=== PATIENT | female | born 1980 | race Asian ===

== ENCOUNTER → 2018-05-19 | Outpatient (REF) | payer OTHER | LOC: M SFHCLERA 11:11 | DX: J02.9 Acute pharyngitis, unspecified (principal) ==

== ENCOUNTER → 2018-05-19 | Outpatient (CLI) | payer OTHER | LOC: M LRY 11:12 | DX: R05 Cough (principal) | CPT/HCPCS: 87880 ==

== ENCOUNTER → 2018-12-11 | Outpatient (CLI) | payer OTHER ==
[~2018-12-11] MED LIST: GASTROGRAFIN SOLUTION 30ML (Q9963) As Ordered ONE; ISOVUE-370 76% 100ML VIAL (Q9967) As Ordered ONE
--- NOTE | 2018-12-11 16:32 | REP ---
CT abdomen and pelvis with IV and oral contrast: History: Left lower quadrant abdomen pain. Nausea. Please evaluate for renal stones, pancreatic lesion, or intra-abdominal lymphadenopathy. CT contrast dose: 100 ml of intravenous Isovue 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 The lung bases are clear. The liver and the spleen are normal in size homogeneous in texture. No adrenal lesion is seen. Pancreas is unremarkable. No evidence pancreatic cyst or mass. No abnormality is noted in the gallbladder. The kidneys enhance symmetrically and are morphologically intact. No retroperitoneal mass or adenopathy is observed. Urinary bladder is unremarkable. Normal uterus is seen. No ovarian abnormality is observed on either side. Small and large bowel loops are unremarkable. No bony destructive lesion is seen. No abdominal wall defect is observed. There is no evidence of free air or abnormal fluid collection. A normal retrocecal appendix is noted. Impression: Normal CT study of the abdomen and pelvis. Electronically Signed by Brian Lyons MD 12/11/2018 04:40 P
== END ==
LOC: M RAD 13:55
PROVIDERS: ATTEND Internal Medicine Gastroenterology
DX: R10.12 Left upper quadrant pain (principal)
CPT/HCPCS: 74177; Q9963; Q9967

== ENCOUNTER → 2018-12-22 | Outpatient (CLI) | payer OTHER ==
[~2018-12-22] MED LIST changes: +E-Z-GAS II EFFERVESCENT PACKET (SODIUM BICARB./CITRIC ACID/SIMETHICONE) As Ordered ONE; +E-Z-HD 98% w/w 340GM SUSP BTL As Ordered ONE; +E-Z-PAQUE 96% w/w SUSP 176GM BTL As Ordered ONE; -GASTROGRAFIN SOLUTION 30ML (Q9963) As Ordered ONE; -ISOVUE-370 76% 100ML VIAL (Q9967) As Ordered ONE
--- NOTE | 2018-12-22 18:02 | REP ---
UPPER GI AIR CONTRAST AND SMALL BOWEL FOLLOW THROUGH The procedure was performed under the direct supervision of Dr. Lyons. The images were reviewed with Dr. Lyons The brand ambassadors promotional sales film shows no organomegaly or pathological masses. The intestinal gas pattern is non-specific. Liquid barium and gas producing crystals were given in the erect position as well as liquid barium in the prone oblique position in order to perform a double contrast upper GI examination. Additionally liquid barium was given at the end of the examination in order to perform a small bowel follow through. The oral and pharyngeal stages of deglutition are unremarkable. Esophageal transport is prompt and efficient and there is no esophagitis, stricture, mucosal ring or hiatal hernia. Gastroesophageal reflux is not demonstrated on this examination. The stomach caruso are normally outlined . The rugal folds are smooth and regular. There is no gastritis neoplasm or ulcer disease. The duodenal caruso are normally outlined . The mucosal folds are smooth and regular. There is no duodenitis pancreatitis peptic ulcer disease or neoplasm. The visualized portion of the proximal small bowel appears normal in course and caliber. The barium column was followed through the small bowel to the level of the terminal ileum. Small bowel transit time is approximately 30 minutes . During fluoroscopy gentle palpation shows all loops are freely movable and pliable. There are no fixed or angulated loops. The small bowel mucosal pattern is normal in course and caliber. There is no transition to suggest a partial small-bowel obstruction. Spot filming of the terminal ileum shows it to be unremarkable. Impression: Essentially unremarkable double contrast upper GI and small bowel follow through examination. 2.2 minutes of fluoro time was utilized for this procedure. Reviewed by GAYATHRI Keen 12/22/2018 04:17 P Electronically Signed by Brian Lyons MD 12/22/2018 05:52 P
== END ==
LOC: M RAD 09:07
PROVIDERS: ATTEND Internal Medicine Gastroenterology
DX: R10.12 Left upper quadrant pain (principal)

== ENCOUNTER → 2019-01-25 | Outpatient (CLI) | payer OTHER ==
[~2019-01-25] MED LIST changes: -E-Z-GAS II EFFERVESCENT PACKET (SODIUM BICARB./CITRIC ACID/SIMETHICONE) As Ordered ONE; -E-Z-HD 98% w/w 340GM SUSP BTL As Ordered ONE; -E-Z-PAQUE 96% w/w SUSP 176GM BTL As Ordered ONE; +LIQUID POLIBAR PLUS 105% w/v 1900ML BTL As Ordered ONE
--- NOTE | 2019-01-25 18:49 | REP ---
BARIUM AND AIR CONTRAST The procedure was performed under the direct supervision of Dr. Ibarra. The images were reviewed with Dr. Ibarra. The stacker tender film shows no organomegaly or pathological masses. The test gas pattern is nonspecific. Liquid barium and air were instilled into the colon and retrograde flow of the barium air mixture. The colon is normal in position and contour. Haustration is unremarkable throughout. There is free flow of contrast to the cecum. There is reflux into the terminal ileum. The colonic mucosal pattern is normal in course and caliber. There is no annular constricting lesion identified. There are no polypoid masses identified. There are a few mobile filling defects seen throughout the examination consistent with small stool particles from incomplete cleansing. Impression: Double contrast barium enema within normal limits. 0.6 minutes of fluoroscopy time was utilized for this procedure. Reviewed by GAYATHRI Keen 01/25/2019 03:26 P Electronically Signed by Gaetano Ibarra MD 01/25/2019 06:40 P
== END ==
LOC: M RAD 08:39
PROVIDERS: ATTEND Internal Medicine Gastroenterology
DX: K59.00 Constipation, unspecified (principal)

== ENCOUNTER → 2020-05-23 | Outpatient (REF) | payer OTHER ==
[~2020-05-23] MED LIST changes: -LIQUID POLIBAR PLUS 105% w/v 1900ML BTL As Ordered ONE; +ONE-TAB25 PO
== END ==
LOC: M SFHCLERA 15:29
PROVIDERS: ATTEND Nurse Practitioner Family
DX: R10.30 Lower abdominal pain, unspecified (principal)